=== PATIENT | female | born 1965 | race Caucasian/White ===

== ENCOUNTER 2016-12-28 19:21 | Emergency (ER) | payer OTHER ==
[~2016-12-28] VITALS: Ht 154.9 cm; Wt 47.2 kg
[2016-12-28 19:30] VITALS: BP_SYST 140
[2016-12-28 21:00] VITALS: BP_SYST 140
== END 2016-12-28 20:21 | disposition home or self-care (01) ==
LOC: SED 19:21
DX: S01.112A Laceration without foreign body of left eyelid and periocular area, initial encounter (principal); W22.8XXA Striking against or struck by other objects, initial encounter; Y93.89 Activity, other specified; Y92.89 Other specified places as the place of occurrence of the external cause; Y99.8 Other external cause status
CPT/HCPCS: 99283

== ENCOUNTER 2018-12-15 12:08 | Emergency (ER) | payer OTHER ==
[~2018-12-15] VITALS: Ht 154.9 cm; Wt 49.0 kg
[2018-12-15 12:31] VITALS: BP_SYST 117
--- NOTE | 2018-12-15 15:05 | NUR ---
Patient to ER bed 5 to gown for evaluation. Side rails up.
--- NOTE | 2018-12-15 15:08 | NUR ---
ER Dr. KHAN at bedside examining patient.
[2018-12-15] MEDS ORDERED: IBUPROFEN 600 MG TABLET PO ONE (15:15)
--- NOTE | 2018-12-15 15:16 | NUR ---
PATIENT CAME IN COMPLAINING OF PAIN IN LEFT ELBOW. PT STATES SHE DISLOCATED ELBOW ON December. PT WENT TO PCP TO GET CAST BUT PT STATED SHE FELT BETTER SO DIDNT GET IT AFTER ALL. PT HAS BEEN MOVING AND LIFTING THINGS PER AND THOUGHT SHE DISLOCATED IT AGAIN. PATIENT COMPLAINING OF 4/10 PAIN WHEN MOVING ELBOW. PT ALERT AND ORIENTED. PT DENIES SOB. AT BEDSIDE.
[2018-12-15 15:48] VITALS: BP_SYST 117
--- NOTE | 2018-12-15 15:48 | NUR ---
Patient given written and verbal discharge instructions and verbalizes understanding. ER MD discussed with patient the results and treatment provided. Patient in stable condition. ID arm band removed. Rx of Motrin given. Patient educated on pain management and to follow up with PMD. Pain Scale 0/10. Opportunity for questions provided and answered. Medication side effect fact sheet provided.
== END 2018-12-15 15:48 | disposition home or self-care (01) ==
LOC: SED 12:08
DX: M25.522 Pain in left elbow (principal)
CPT/HCPCS: 99283